=== PATIENT | female | born 2000 | race Caucasian/White ===

== ENCOUNTER → 2020-03-03 | Outpatient (CLI) | payer OTHER, BC ==
[~2020-03-03] MED LIST: IBUPROFEN600 MG PO; OMNICEF 300 MG300 MG PO
== END ==
LOC: EMI 02-24 14:30
DX: G40.109 Localization-related (focal) (partial) symptomatic epilepsy and epileptic syndromes with simple partial seizures, not intractable, without status epilepticus (principal); Q28.3 Other malformations of cerebral vessels
CPT/HCPCS: 70553; A9577

== ENCOUNTER 2020-05-14 04:42 | Emergency (ER) | payer BC, OTHER ==
[2020-05-14 05:38] LABS: HEMOGLOBIN 13.8 gm/dl (12.3-15.3); RED BLOOD COUNT 4.79 M/UL (4.00-5.10); WHITE BLOOD COUNT 8.5 K/UL (4.5-11.0)
[2020-05-14 05:56] LABS: BUN/CREATININE RATIO 15 (0-10)
[2020-05-14] MEDS ORDERED: IBUPROFEN600 MG PO (07:15)
[2020-05-14] MEDS ORDERED: OMNICEF 300 MG300 MG PO (07:15)
== END 2020-05-14 08:02 | disposition home or self-care (01) ==
LOC: ER1 04:42
PROVIDERS: Internal Medicine
DX: N83.201 Unspecified ovarian cyst, right side (principal); N39.0 Urinary tract infection, site not specified; R04.0 Epistaxis; Z86.73 Personal history of transient ischemic attack (TIA), and cerebral infarction without residual deficits; Z88.2 Allergy status to sulfonamides; Z88.8 Allergy status to other drugs, medicaments and biological substances
CPT/HCPCS: 80053; 81001; 83690; 84703; 85025; 85610; 85730; 96365; 99284; J0696

== ENCOUNTER → 2020-06-02 | Outpatient (CLI) | payer BC, OTHER | LOC: MRI 05-25 08:30 | DX: D18.02 Hemangioma of intracranial structures (principal); G08 Intracranial and intraspinal phlebitis and thrombophlebitis | CPT/HCPCS: 70544 ==

== ENCOUNTER → 2021-02-04 | Outpatient (CLI) | payer BC | LOC: SLEEP 14:24 | DX: R53.83 Other fatigue (principal); G47.33 Obstructive sleep apnea (adult) (pediatric) | CPT/HCPCS: 95810 ==

== ENCOUNTER → 2021-06-29 | Outpatient (CLI) | payer BC ==
[~2021-06-29] MED LIST changes: +Fish Oil PO; +METFORMIN HCL500 MG PO; +NURTEC ODT75 MG PO; +PRILOSEC OTC20 MG PO; +SINGULAIR10 MG PO; +STELARA90 MG/1 ML SQ; +TOPAMAX200 MG PO; +TYLENOL325 MG PO; +ZOFRAN 4 MG TAB4 MG PO; +[UNRECOGNIZED DRUG - OTHER] PO
[2021-06-29 10:48] LABS: HEMOGLOBIN 14.9 gm/dl (12.3-15.3); RED BLOOD COUNT 5.14 M/UL (4.00-5.10); WHITE BLOOD COUNT 9.5 K/UL (4.5-11.0)
== END ==
LOC: OPSV2 09:00
PROVIDERS: Obstetrics & Gynecology
DX: Z01.812 Encounter for preprocedural laboratory examination (principal); R10.2 Pelvic and perineal pain
CPT/HCPCS: 81001; 85025

== ENCOUNTER → 2021-07-06 | Outpatient (CLI) | payer BC ==
[~2021-07-06] MED LIST changes: +COLACE100 MG PO; +METRONIDAZOLE500 MG PO; +TYLENOL 8 HOUR650 MG PO
== END ==
LOC: LAB 11:52
DX: Z20.822 Contact with and (suspected) exposure to COVID-19 (principal)
CPT/HCPCS: U0003

== ENCOUNTER → 2021-07-09 | Day surgery (SDC) | payer BC | END | disposition home or self-care (01) | LOC: OR 06:10 | DX: R10.2 Pelvic and perineal pain (principal); G89.29 Other chronic pain; K21.9 Gastro-esophageal reflux disease without esophagitis; L40.50 Arthropathic psoriasis, unspecified; E03.9 Hypothyroidism, unspecified; E28.2 Polycystic ovarian syndrome; Z91.018 Allergy to other foods; Z79.84 Long term (current) use of oral hypoglycemic drugs | CPT/HCPCS: 84703; J1100; J1885; J2001; J2250; J2405; J2704; J2710; J2795; J3010; J7120 ==